=== PATIENT | female | born 1970 | race Caucasian/White ===

== ENCOUNTER 2022-02-19 17:21 | Emergency (ER) | payer OTHER ==
[~2022-02-19] VITALS: Ht 188 cm; Wt 83.9 kg
--- OUTSIDE RECORDS SUMMARY | 2022-02-19 17:24 | XMS ---
PreManage Notification: STEVEN HAWLEY Security Scaffolder Events No recent Security Events currently on file CRITERIA MET - [facility] PROVIDERS DEREK HORVATH Physician [employer] Current PHONE: [phone] Irais has no Care Guidelines for this patient. EYou VISIT COUNT (12 MO.) 1 ALLY Riley TOTAL 1 NOTE: Visits indicate total known visits. ED/UCC VISIT TRACKING (12 MO.) 02/19/2022 17:22 [facility] TYPE: Emergency COMPLAINT: - FLU SYMPTOMS INPATIENT VISIT TRACKING (12 MO.) No inpatient visits to display in this time frame [email or web address]
[2022-02-19] MEDS ORDERED: PAROXETINE HCL10 MG PO (17:47)
[2022-02-19] MEDS ORDERED: GABAPENTIN300 MG PO (17:47)
[2022-02-19] MEDS ORDERED: NAPROSYN500 MG PO (18:36)
--- NOTE | 2022-02-20 18:19 | EKG ---
[facility] [address] [facility] [place], [place] [address] Signed Normal sinus rhythm Septal infarct , age undetermined Abnormal ECG No previous ECGs available Confirmed by ROBBIE ROSENBERG MD ([id number]) on 02/20/2022 6:18:47 PM Electronically Signed By: ROBBIE ROSENBERG MD 02/20/221818 PATIENT NAME: STEVEN HAWLEY Electrocardiogram DATE OF : 70 PHYSICIAN: ROBBIE ROSENBERG MD REPORT #: [id number] REPORT IS CONFIDENTIAL AND NOT TO BE RELEASED WITHOUT AUTHORIZATION
== END 2022-02-19 18:47 | disposition home or self-care (01) ==
LOC: ED 17:21
DX: R07.89 Other chest pain (principal); Z20.822 Contact with and (suspected) exposure to COVID-19
CPT/HCPCS: 36415; 71045; 80053; 84484; 85025; 87502; 93005; 93010; C9803; U0003